=== PATIENT | male | born 1995 | race Caucasian/White ===

== ENCOUNTER 2019-11-26 18:46 | Emergency (ER) | payer BC ==
[2019-11-26] MEDS ORDERED: Ketorolac 30 MG/ML SDV IVPUSH ONE (20:56)
[2019-11-26] MEDS ORDERED: LORazepam 2 MG/ML SDV IVPUSH ONE (20:56)
[2019-11-26] MEDS ORDERED: Sodium Chloride 0.9% 1,000 ML IV ONE (20:56)
--- NOTE | 2019-11-26 20:57 | EDM.PDOC ---
ED HPI GENERAL MEDICAL PROBLEM - General Chief Complaint: Headache Stated Complaint: HEADACHE RADIATING Time Seen by Provider: 11/26/19 20:52 Source of Information: Reports: Patient History Limitations: Reports: No Limitations - History of Present Illness INITIAL COMMENTS - FREE TEXT/NARRATIVE: HISTORY AND PHYSICAL: History of present illness: Patient is a 24-year-old male who presents to the emergency room with complaints of a generalized headache that starts in the front and goes to his posterior neck. He states he typically does not get migraine headaches and would describe this as more severe than any others he has had previous. He has had some relief using Tylenol although states it does not last long. Denies any recent injury, trauma or falls. No light or noise sensitivity associated with this. Has not recently been around anyone who is been ill or traveling. Patient denies any change in vision, syncope or near syncope. Denies any chest pain, back pain, shortness of breath or cough. Denies any abdominal pain, nausea , vomiting, diarrhea, constipation or dysuria. Patient has been eating and drinking appropriately. Review of systems: As per history of present illness and below otherwise all systems reviewed and negative. Past medical history: As per history of present illness and as reviewed below otherwise noncontributory. Surgical history: As per history of present illness and as reviewed below otherwise noncontributory. Social history: See social history for further information Family history: As per history of present illness and as reviewed below otherwise noncontributory. Physical exam: General: Well-developed and well-nourished 24-year-old male. Alert and oriented. Nontoxic-appearing and in no acute distress. HEENT: Atraumatic, normocephalic, pupils equal and reactive bilaterally, negative for conjunctival pallor or scleral icterus, mucous membranes moist, TMs normal bilaterally, throat erythematous without exudate or soft tissue swelling, neck supple, nontender, trachea midline. No drooling or trismus noted. No meningeal signs. No hot potato voice noted. Lungs: Clear to auscultation, breath sounds equal bilaterally, chest nontender. Heart: S1S2, regular rate and rhythm without overt murmur Abdomen: Soft, nondistended, nontender. Negative for masses or hepatosplenomegaly. Negative for costovertebral tenderness. Skin: Intact, warm, dry. No lesions or rashes noted. Extremities: Atraumatic, moves all extremities per self without difficulty or deficits, negative for cords or calf pain. Neurovascular unremarkable. Neuro: Awake, alert, oriented. Cranial nerves II through XII unremarkable. Cerebellum unremarkable. Motor and sensory unremarkable throughout. Exam nonfocal. Notes: Patient does not have any neck stiffness or nuchal rigidity upon my exam. I will do a head CT as he states this is a severe headache for him. He does have his mom at the bedside who will be able to drive, post IV medications. Head CT is unremarkable with the exception of sinus infection. Patient does have a lot of pressure in the sinus cavity, will treat with Doxy as he does have allergies. Supportive care measures were reviewed and discussed. Voices understanding and is agreeable to plan of care. Denies any further questions or concerns at this time. Diagnostics: Influenza, strep, head CT Therapeutics: IV fluids, Toradol, Ativan Prescription: Doxycycline Impression: Sinusitis Sinus Headache Plan: 1. You can continue taking Tylenol and/or Ibuprofen as needed for pain. 2. Follow up with your primary care provider as we discussed. Return to the ED as needed and as discussed. Definitive disposition and diagnosis as appropriate pending reevaluation and review of above. Headache Pain Score (Numeric/FACES): 5 - Related Data Allergies Allergy/AdvReac Type Severity Reaction Status Date / Time cefdinir [From Omnicef] Allergy Rash Verified 11/26/19 19:22 Home Meds: Home Meds Albuterol Sulfate [Albuterol Sulfate Hfa] 8.5 gm INH ASDIRECTED PRN 11/26/19 [ History] Albuterol/Ipratropium [DuoNeb 3.0-0.5 MG/3 ML] 3 ml INH ASDIRECTED PRN 11/26/19 [History] Cetirizine HCl [Zyrtec] 10 mg PO DAILY 11/26/19 [History] Doxycycline [Vibramycin] 100 mg PO BID 7 Days #14 tab 11/26/19 [Rx] Fluticasone/Vilanterol [Breo Ellipta 100-25 MCG Inhalation Kit] 1 puff INH DAILY 11/26/19 [History] Past Medical History Respiratory History: Reports: Asthma - Infectious Disease History Infectious Disease History: Reports: Chicken Pox - Past Surgical History Musculoskeletal Surgical History: Reports: Other (See Below) Other Musculoskeletal Surgeries/Procedures:: left leg surgery Social & Family History - Family History Family Medical History: Noncontributory - Tobacco Use Smoking Status *Q: Never Smoker - Caffeine Use Caffeine Use: Reports: Soda - Recreational Drug Use Recreational Drug Use: No ED ROS GENERAL - Review of Systems Review Of Systems: Comprehensive ROS is negative, except as noted in HPI. - Physical Exam Exam: See Below (See dictation) Course - Vital Signs Last Recorded V/S: Last Vital Signs Temp 99.2 F 11/26/19 21:26 Pulse 93 11/26/19 21:26 Resp 17 11/26/19 21:26 BP 139/81 11/26/19 21:26 Pulse Ox 97 11/26/19 21:26 - Orders/Labs/Meds Orders: Active Orders 24 hr Category Date Time Status CULTURE STREP A CONFIRMATION [] Stat Lab 11/26/19 20:56 Results STREP SCRN A RAPID W CULT CONF [] Stat Lab 11/26/19 20:56 Results Meds: Medications Discontinued Medications Generic Name Dose Route Start Last Admin Trade Name Terry PRN Reason Stop Dose Admin Doxycycline Hyclate 100 mg 11/26/19 21:44 Vibramycin PO 11/26/19 21:45 ONETIME ONE Sodium Chloride 1,000 mls @ 999 mls/hr 11/26/19 20:56 11/26/19 21:22 Normal Saline IV 11/26/19 21:56 999 mls/hr STAT ONE Administration Ketorolac Tromethamine 30 mg 11/26/19 20:56 11/26/19 21:22 Toradol IVPUSH 11/26/19 20:57 30 mg ONETIME ONE Administration Lorazepam 1 mg 11/26/19 20:56 11/26/19 21:24 Ativan IVPUSH 11/26/19 20:57 1 mg ONETIME ONE Administration Departure - Departure Time of Disposition: 21:59 Disposition: Home, Self-Care 01 Clinical Impression: Sinus headache Sinusitis Qualifiers: Sinusitis location: maxillary Chronicity: acute Recurrence: non-recurrent Qualified Code(s): J01.00 - Acute maxillary sinusitis, unspecified - Discharge Information Prescriptions: Doxycycline [Vibramycin] 100 mg PO BID 7 Days #14 tab Instructions: Sinus Headache, [id number] Referrals: Raegan Barbosa DO [Primary Care Provider] - Forms: ED Department Discharge Additional Instructions: The following information is given to patients seen in the emergency department who are being discharged to home. This information is to outline your options for follow-up care. We provide all patients seen in our emergency department with a follow-up referral. The need for follow-up, as well as the timing and circumstances, are variable depending upon the specifics of your emergency department visit. If you don't have a primary care physician on staff, we will provide you with a referral. We always advise you to contact your personal physician following an emergency department visit to inform them of the circumstance of the visit and for follow-up with them and/or the need for any referrals to a consulting specialist. The emergency department will also refer you to a specialist when appropriate. This referral assures that you have the opportunity for follow-up care with a specialist. All of these measure are taken in an effort to provide you with optimal care, which includes your follow-up. Under all circumstances we always encourage you to contact your private physician who remains a resource for coordinating your care. When calling for follow-up care, please make the office aware that this follow-up is from your recent emergency room visit. If for any reason you are refused follow-up, please contact the [facility] Emergency Department at and asked to speak to the emergency department charge nurse. [facility] [address] [place] [id number] [place] [address] 1. You can continue taking Tylenol and/or Ibuprofen as needed for pain. 2. Follow up with your primary care provider as we discussed. Return to the ED as needed and as discussed. Sepsis Event Note - Evaluation Sepsis Screening Result: No Definite Risk - Focused Exam Vital Signs: Vital Signs Temp Pulse Resp BP Pulse Ox 11/26/19 21:26 99.2 F 93 17 139/81 97 11/26/19 19:24 100.2 F 106 H 17 136/73 96 Date Exam was Performed: 11/26/19 Time Exam was Performed: 22:00 - My Orders Last 24 Hours: My Active Orders 11/26/19 20:56 CULTURE STREP A CONFIRMATION [RM] Stat STREP SCRN A RAPID W CULT CONF [RM] Stat - Assessment/Plan Last 24 Hours: My Active Orders 11/26/19 20:56 CULTURE STREP A CONFIRMATION [RM] Stat STREP SCRN A RAPID W CULT CONF [RM] Stat
--- NOTE | 2019-11-26 21:24 | CT ---
INDICATION: Headache TECHNIQUE: CT head without contrast. COMPARISON: None available FINDINGS: The ventricles and sulci are within normal limits for the patient`s age. There is no mass effect or midline shift. There is no loss of martinez-white differentiation. There is no evidence of a gross acute intracranial hemorrhage. No acute calvarial fracture is seen. Mild paranasal sinus disease is noted. There is apparent partial opacification of few hypoplastic right mastoid air cells. The visualized orbits are within normal limits. IMPRESSION: No evidence of a gross acute intracranial hemorrhage, mass effect or loss of martinez-white differentiation. Mild paranasal sinus disease. Dictated by Steve Gracia MD @ 11/26/2019 9:23:27 PM Please note that all CT scans at this facility use dose modulation, iterative reconstruction, and/or weight-based dosing when appropriate to reduce radiation dose to as low as reasonably achievable. Dictated by: Steve Gracia MD @ 11/26/2019 21:23:34 (Electronically Signed)
[2019-11-26] MEDS ORDERED: Doxycycline 100 MG Cap PO ONE (21:44)
[2019-11-26 22:14] VITALS: BP 135/72; PULSE 83
== END 2019-11-26 22:20 | disposition home or self-care (01) ==
LOC: MW.ED 18:46
DX: J01.00 Acute maxillary sinusitis, unspecified (principal); J45.909 Unspecified asthma, uncomplicated
CPT/HCPCS: 70450; 87081; 87804; 87880; 96361; 96374; 96375; 99284; A9270; J1885; J2060; J7030